=== PATIENT | male | born 1960 | race Caucasian/White ===

== ENCOUNTER → 2017-05-17 | Outpatient (CLI) | payer BC, OTHER ==
[2014-12-18 15:28] VITALS: BP 101/55
[~2017-05-17] MED LIST: CITA40TA5 PO; CRESTOR10 MG PO; INSU100I13 SQ; LOSA1TAB16 PO; LOSA50TA6 PO; METF500T4 PO; PANT40TA5 PO; SITA100T PO; SITA1TBM7 PO; TADA5TAB PO
--- NOTE | 2017-05-17 12:32 | KCIC ---
INDICATION: Low back pain with radiculopathy. Fall on April 25. Radiculopathy is greater on the right. TECHNIQUE: Sagittal T1, sagittal T2, sagittal STIR, axial T1, and axial T2 sequences are provided. There is mild motion on the sagittal T2 sequence. No comparison is available. FINDINGS: There is no malalignment. There is no marrow edema. There is no worrisome marrow lesion. There is disc desiccation which is greatest at L4-L5. Disc height is relatively maintained. The conus medullaris is normal in signal intensity and in position. Subcutaneous edema is noted. The numbering system assumes 5 lumbar type vertebral bodies. Findings by individual level are as follows: T12-L1, L1-L2: There are minimal disc bulges without canal or foraminal compromise, these levels are only evaluated in the sagittal plane. There is probably minimal facet hypertrophy at L1-L2 as well. L2-L3: There is minimal facet hypertrophy without canal or foraminal compromise. L3-L4: There is a minimal disc bulge and mild facet hypertrophy without canal or foraminal compromise. L4-L5: There is a diffuse disc bulge. There is moderate facet hypertrophy and there is mild ligamentum flavum hypertrophy which is greater on the left. Epidural fat is mildly prominent at this level. There is mild to moderate canal stenosis, midline AP diameter of the thecal sac is 8 mm. There is lateral recess narrowing bilaterally. There is also moderate foraminal narrowing bilaterally. L5-S1: Minimal disc bulge and facet hypertrophy are noted with mild foraminal narrowing. There are mild degenerative changes at the SI joints, greater on the left. IMPRESSION: 1. Mild degenerative changes in the lumbar spine are greatest at L4-L5. Electronically signed by: Stephen Cody MD (05/17/2017 12:28 PM) [id number]
--- NOTE | 2017-05-17 13:02 | KCIC ---
Examination: MRI of the right knee without contrast HISTORY: History of right knee pain, lateral knee pain, intermittent swelling COMPARISON: None available TECHNIQUE: Multiplanar, multisequence MR imaging of the right knee was performed without contrast. FINDINGS: The anterior cruciate ligament, posterior cruciate ligament are intact. There is mild blunting of the posterior horn of the medial meniscus , question a probable small radial tear. The lateral meniscus appears intact. There is mild trabecular edema identified in the posterior medial tibial plateau. The extensor mechanism is intact. There is mild increased signal identified in the proximal portion of the infrapatellar tendon likely mild tendinosis. Small knee joint effusion. Tiny popliteal cyst. The medial collateral ligament is intact and the lateral collateral ligamentous complex including the fibular collateral ligament, biceps femoris tendon, popliteus tendon appear intact. The distal attachment of the iliotibial band is intact. The medial retinaculum, lateral retinaculum are intact. There is mild superficial fraying of cartilage identified in the medial, lateral, patellofemoral compartments. IMPRESSION: 1. Blunting of the posterior horn of the medial meniscus , question small radial tear. 2. Mild trabecular edema identified in the posterior medial tibial plateau. 3. Small knee joint effusion. Tiny popliteal cyst. 4. Grade I chondromalacia medial, lateral, patellofemoral compartments. 5. Mild tricompartmental degenerative changes. 6. Mild tendinosis proximal infrapatellar tendon. Electronically signed by: Carlos A Bell MD (05/17/2017 12:58 PM) [id number]
== END | disposition home or self-care (01) ==
LOC: KCIC MRI 10:46
PROVIDERS: ATTEND Orthopaedic Surgery
DX: M54.40 Lumbago with sciatica, unspecified side (principal); M47.896 Other spondylosis, lumbar region; M25.461 Effusion, right knee; M71.21 Synovial cyst of popliteal space [Baker], right knee; M94.261 Chondromalacia, right knee; R60.0 Localized edema; W19.XXXD Unspecified fall, subsequent encounter
CPT/HCPCS: 72148; 73721

== ENCOUNTER → 2017-12-30 | Outpatient (CLI) | payer BC, OTHER | END | disposition home or self-care (01) | LOC: KCIC MRI 09:11 | DX: S46.012A Strain of muscle(s) and tendon(s) of the rotator cuff of left shoulder, initial encounter (principal); M25.712 Osteophyte, left shoulder; X58.XXXA Exposure to other specified factors, initial encounter; Y93.89 Activity, other specified; Y92.89 Other specified places as the place of occurrence of the external cause; Y99.8 Other external cause status | CPT/HCPCS: 73221 ==